=== PATIENT | male | born 1955 | race Caucasian/White ===

== ENCOUNTER 2017-11-05 06:05 | Day surgery (SDC) | payer OTHER ==
[2017-11-04 14:04] VITALS: BMI 30.2
[2017-11-05] MEDS ORDERED: MIDAZOLAM HCL 2 MG/2 ML SINGLE DOSE VIAL ONE (07:47)
[2017-11-05] MEDS ORDERED: PROPOFOL 20 ML ONE ×2 (07:47→07:54)
[2017-11-05] MEDS ORDERED: BUPIVACAINE HCL/PF 0.5% (5MG/ML) 10 ML VIAL IJ ONE ×2 (08:03→08:27)
[2017-11-05] MEDS ORDERED: LIDOCAINE HCL 1%, 10 MG/ML (20ML VIAL) ID ONE ×2 (08:03→08:27)
[2017-11-05] MEDS ORDERED: ceFAZolin SODIUM 1 GM VIAL IVPB ONE (08:16)
[2017-11-05] MEDS ORDERED: SODIUM CHLORIDE 0.9% P/F 10 ML VIAL IJ ONE (08:20)
[2017-11-05] MEDS ORDERED: ceFAZolin SODIUM 1 GM VIAL ONE (08:20)
[2017-11-05] MEDS ORDERED: DEXAMETHASONE SOD PHOSPHATE 4 MG/1 ML VIAL ONE (08:20)
[2017-11-05] MEDS ORDERED: oxyCODONE HCL 5 MG TABLET PO PRN ×2 (08:40)
[2017-11-05] MEDS ORDERED: ONDANSETRON 4 MG/2 ML VIAL IVPUSH PRN (08:40)
[2017-11-05] MEDS ORDERED: LACTATED RINGERS SOLUTION 1,000 ML IV SCH (08:45)
--- NOTE | 2017-11-05 08:53 | OP ---
Operative Note - Note: Operative Date: 11/05/17 Pre-Operative Diagnosis: left Dequervain's Operation: left Dequervain's release, tendon sheath excision Post-Operative Diagnosis: Same as Pre-op Surgeon: Federico De Souza Final Inspection Supervisor: Alexandro Mcdaniel Anesthesiologist/TILTROTOR CREW CHIEF: Abhijeet Hernandez Anesthesia: Local, MAC Specimens Removed: tendon sheath Estimated Blood Loss (mls): 0 Drains, Volume Out (mls): 0 Blood Volume Replaced (mls): 0 Fluid Volume Replaced (mls): 500 Operative Report Dictated: Yes
--- NOTE | 2017-11-05 09:07 | HP ---
Satellite H - Chief Complaint Chief Complaint: left wrist pain - Past Medical History Allergies/Adverse Reactions: Allergies Allergy/AdvReac Type Severity Reaction Status Date / Time No Known Drug Allergies Allergy Verified 11/04/17 14:09 - Current Medications Current Medications: Home Medications Medication Instructions Recorded Aspirin Coated [Ecotrin -] 81 mg PO DAILY 11/04/17 Atorvastatin Ca [Lipitor] 40 mg PO HS 11/04/17 Irbesartan 300 mg PO DAILY 11/04/17 Line [place]-3 Fatty Acids/Fish Oil [Fish 1 each PO DAILY 11/04/17 Oil 1,000 mg Capsule] Hydrocodone/Acetaminophen [Summit 1 each PO Q6H PRN #20 tablet MDD 4 11/05/17 5-325 Tablet] Satellite Physical Exam - Physical Examination Vital Signs: Vital Signs Period Temp Pulse Resp BP Sys/Barbour Pulse Ox Last 24 Hr 98.2 F-98.2 F 68-68 16-16 133-133/78-78 97 General Appearance: Well Nourished, Well Developed, Alert & Oriented x3 ENT: Clear Lung: Normal air movement Heart: Regular rate & rhythm Extremities: Other (left wrist- + ttp first dorsal compartment, + finkelsteins, nvi) Neurological: Intact, Alert, Oriented Satellite Impression/Plan - Impression/Plan Impression: left dequervains tenosynovitis Operative Procedure: left dequervains release Date to be Performed: 11/05/17
--- NOTE | 2017-11-05 10:01 | SPEC ---
DATE OF OPERATION: 11/05/2017 PREOPERATIVE DIAGNOSIS: Left De Quervains tenosynovitis. POSTOPERATIVE DIAGNOSIS: Left De Quervains tenosynovitis. PROCEDURE: Left De Quervains release and tendon sheath excision. SURGEON: Federico De Souza MD AREA SAFETY MANAGER: Tyrel Leal MD ANESTHESIA: MAC with local injection of 10 mL of 0.5% Marcaine and 1% Lidocaine mix. BLOOD LOSS: None. BLOOD GIVEN: None. SPECIMEN: Tendon sheath, left wrist. DRAINS: None. COMPLICATIONS: None. INDICATIONS: This patient is a 62-year-old male with a preoperative diagnosis of recurrent severe left De Quervain tenosynovitis. After understanding the potential risks, complications, alternatives, and benefits of surgery versus nonsurgical treatment, the patient elected to undergo this procedure. PROCEDURE: Patient was brought to the operating room, peripheral IV placed, IV sedation given. One gram of IV Ancef was given. MAC anesthesia was induced. The tourniquet was applied to the left arm. The entire care was done under 3.8 loop magnification. The left upper extremity was prepped and draped in a sterile fashion. A longitudinal incision was marked out with a marking pen. A mix of 14 mL of 0.5% Marcaine, 1% Lidocaine were injected in and around the surgical area. The left upper extremity was then elevated, exsanguinated with an Esmarch bandage and the tourniquet inflated to 250 mmHg. A No. 15 scalpel blade was utilized to make a longitudinal incision. Subcutaneous hemostasis was achieved with a bipolar cautery. Dissection was done with a Littler scissors down to the first dorsal wrist compartment. Great care was taken to directly visualize and preserve all crossing sensory branches of the sensory nerve. Under direct visualization, the first dorsal wrist compartment was visualized and it was freed up from some adhesions with a [place] elevator. Next, a fresh No. 15 scalpel blade was utilized to open up the first dorsal wrist compartment, starting proximally and going distally both with the No. 15 scalpel blade and also with a Littler scissors. The anatomy was seen to have multiple slips of the abductor pollicis longus and the extensor pollicis brevis was in its own tendon tunnel. This was also released and the wall between the two excised. The roof of the tunnel was excised. This was all passed off the field as specimen. The volar lip of the first dorsal wrist compartment was preserved to prevent volar subluxation. The release was completed both distally and proximally in both compartments. I was able to bring out all slips through the wound with a Ragnell retractor and there were no obvious points of compression. The area was copiously irrigated and washed out, again explored and I didn't see any other abnormal tissue and therefore closure was begun. Undyed 4-0 Vicryl was used to close the deep dermal layer. Final skin reapproximation was done with a running subcuticular 4-0 Biosyn stitch. The area was then washed and dried, covered with Steri-Strips, 4 x 4's, fluffs between the fingers, placed in a thumb spica splint, wrapped with Farhad and Coban. The tourniquet was taken down after a total tourniquet time of 18 minutes. There were no complications during the case. The patient tolerated the procedure quite well and was brought to ambulatory recovery room in stable condition. TYREL LEAL M.D. [id number]
[2017-11-05 11:14] VITALS: BP 123/67; PULSE 57
[2017-11-05 12:50] VITALS: TEMP 98.4
--- NOTE | 2017-11-06 15:38 | PATH ---
Surgical Pathology Report Patient Name: JERILYN TURNER [facility]. Rec. #: [id number] /Age/Gender: 1955 (Age: 62) / M Account: [id number] Location: [facility] SURGICAL Taken: 11/05/2017 Received: 11/05/2017 Reported: 11/06/2017 Physicians: Ron Montemayor M.D. Specimen(s) Received TENDON SHEATH Clinical History Left Dequervains Final Diagnosis TENDON SHEATH, WRIST, LEFT, DEQUERVAIN'S RELEASE: BENIGN DENSE FIBROCONNECTIVE TISSUE. Electronically Signed Diana Jordan M.D. Gross Description Received in formalin labeled "tendon sheath," is a 1.4 x 0.8 x 0.2 cm aggregate of duran portions of fibrous tissue, consistent with a tendon sheath. The specimen is entirely submitted in one cassette. /11/05/201711/05/2017
== END 2017-11-05 11:19 | disposition home or self-care (01) ==
LOC: JASU-SURG 06:05
PROVIDERS: ATTEND Orthopaedic Surgery
PROC: 0LB60ZZ Excision of Left Lower Arm and Wrist Tendon, Open Approach (ICD-10-PCS; 2017-11-05)
PROC: 0LN60ZZ Release Left Lower Arm and Wrist Tendon, Open Approach (ICD-10-PCS; principal; 2017-11-05 08:00)
DX: M65.4 Radial styloid tenosynovitis [de Quervain] (principal)
CPT/HCPCS: 88304-TC; 94760